=== PATIENT | male | born 1970 | race Caucasian/White ===

== ENCOUNTER 2017-07-06 11:39 | Inpatient (IN) ==
[2017-07-06] MEDS ORDERED: SALINE FLUSH 10ml SYRINGE IVF PRN ×2 (11:50→12:12)
[2017-07-06] MEDS ORDERED: NS 1,000 ML IV ONE (11:50)
--- NOTE | 2017-07-06 12:44 | Emergency Department Report ---
General Adult HPI - General Stated complaint: high blood sugar Time Seen by Provider: 07/06/17 12:30 Source: family (daughter is interpreting), parts interpreter Mode of arrival: ambulatory Limitations: language barrier - History of Present Illness HPI narrative: Pt presents after being sent form [facility]. Pt was seen in the clinic yesterday for excessive thirst and frequent urination. Labs were obtained and pt started on medication for gout. Pt was notified today that BG was extremely elevated and instructed to report to the ED. Family reports pt only complaint is thirst and frequent urination. Denies N/V, AMS, weakness, or dizziness. Onset (ago): day(s) Consistency: constant Relieving factors: none Associated symptoms: denies other symptoms - Related Data Home Medications Medication Instructions Recorded Confirmed Indomethacin [Indocin] 25 mg PO BID 07/06/17 07/06/17 Allergies Allergy/AdvReac Type Severity Reaction Status Date / Time No Known Allergies Allergy Verified 07/06/17 11:45 Review of Systems Limitations: ROS unobtainable due to patient's medical condition Constitutional: Reports: as per HPI Gastrointestinal: Reports: as per HPI Genitourinary: Reports: as per HPI Neurological: Reports: as per HPI Physical Exam - Limitations Limitations: language barrier - General General appearance: alert, in no apparent distress - Normal Exams: Head:: Normocephalic without trauma Eyes:: Pupils are PERRLA w/ EOMI Neck:: Full range of motion, without adenopathy Chest/Respirations:: Clear all barber, with good airflow, and symmetry bilaterally Cardiovascular:: Regular rate and rhythm, without murmur or gallop, Pulses 2+ all extremities, capillary refill, <2 seconds all extremities Abdomen:: Bowel sounds positive, soft, non-tender, non-distended Musculoskeletal:: No tenderness, or deformity noted, good range of motion, all extremities Integumentary:: No rashes Neurological:: Patient is alert, and oriented Psychiatric:: Patient exhibits, appropriate attention, emotion and affect Medical Decision Making - MDM Narrative Medical decision making narrative: Labs reviewed. Pt remains alert and verbal appropriate. NS infusing. Hospitalist notified for need for admission for hyperglycemia and new onset DM. Pt to be admitted observation at this time. - Differential Diagnosis Hyperglycemia, DM, UTI, BPH - Lab Data Lab results reviewed: Yes: I reviewed the patient's lab results. Result diagrams: 07/06/17 12:24 07/06/17 12:24 Lab Results 07/06/17 07/06/17 07/06/17 Range/Units 11:47 12:24 12:24 WBC 7.0 (4.5-11.0) T/MM3 RBC 4.51 (4.50-5.90) M/MM3 Hgb 13.8 (13.5-17.5) GM/DL Hct 39.5 L (41-53) % MCV 87.6 (80-100) UM3 MCH 30.6 (26-34) UUG MCHC 34.9 (31-37) GM/DL RDW Std Deviation 36.2 L (36.9-50.2) FL Plt Count 273 (130-400) T/MM3 MPV 11.3 (9.4-12.4) UM3 Immature Gran % (Auto) 0.1 (0.0-0.5) % Neut % (Auto) 73.2 H (33-66) % Lymph % (Auto) 20.1 L (23-45) % [place] % (Auto) 5.8 (0-9.0) % Eos % (Auto) 0.4 (0-4) % Baso % (Auto) 0.4 (0-2) % Neut # (Auto) 5.1 (1.8-7.7) T/MM3 Lymph # (Auto) 1.4 (1-4.8) T/MM3 [place] # (Auto) 0.4 (0-0.8) T/MM3 Eos # (Auto) 0.0 (0-0.5) T/MM3 Baso # (Auto) 0.0 (0-0.2) T/MM3 Abs Immat Gran (auto) 0.01 (0.00-0.03) T/MM3 Turbidity < 20 (0-20) Sodium 129 L (134-144) MEQ/L Potassium 5.2 H (3.6-5) MEQ/L Chloride 88 L (98-107) MEQ/L Carbon Dioxide 25 (22-30) MEQ/L Anion Gap 16 H (5-15) MEQ/L BUN 17.0 (9-20) MG/DL Creatinine 0.8 (0.8-1.5) MG/DL GFR Calculation 104 BUN/Creatinine Ratio 21 (6-26) RATIO Glucose 872 H* (75-110) MG/DL Glucometer > 500 (65-110) mg/dL Calculated Osmolality 294 H (261-280) MOSM/KG Calcium 9.2 (8.4-10.2) MG/DL Total Bilirubin 0.60 (0.20-1.30) MG/DL Icterus Index < 2 (0-7) AST 31 (17-59) U/L ALT 58 (21-72) U/L Alkaline Phosphatase 161 H (38-126) U/L Total Protein 8.0 (6.3-8.2) G/DL Albumin 4.4 (3.5-5.0) G/DL Globulin 3.6 (2.4-3.6) G/DL Albumin/Globulin Ratio 1.2 (1.1-2.2) RATIO Specimen Hemolysis < 15 (0-25) Ur Collection Type Urine Color (YELLOW) Urine Clarity Urine pH (5.0-8.0) Ur Specific [place] (1.015-1.025) Urine Protein (NEGATIVE) Urine Glucose (UA) (NEGATIVE) Urine Ketones (NEGATIVE) Urine Occult Blood (NEGATIVE) Urine Nitrate (NEGATIVE) Urine Bilirubin (NEGATIVE) Urine Urobilinogen (NORMAL) EU/DL Ur Leukocyte Esterase (NEGATIVE) Urinalysis Comment 07/06/17 Range/Units 12:28 WBC (4.5-11.0) T/MM3 RBC (4.50-5.90) M/MM3 Hgb (13.5-17.5) GM/DL Hct (41-53) % MCV (80-100) UM3 MCH (26-34) UUG MCHC (31-37) GM/DL RDW Std Deviation (36.9-50.2) FL Plt Count (130-400) T/MM3 MPV (9.4-12.4) UM3 Immature Gran % (Auto) (0.0-0.5) % Neut % (Auto) (33-66) % Lymph % (Auto) (23-45) % [place] % (Auto) (0-9.0) % Eos % (Auto) (0-4) % Baso % (Auto) (0-2) % Neut # (Auto) (1.8-7.7) T/MM3 Lymph # (Auto) (1-4.8) T/MM3 [place] # (Auto) (0-0.8) T/MM3 Eos # (Auto) (0-0.5) T/MM3 Baso # (Auto) (0-0.2) T/MM3 Abs Immat Gran (auto) (0.00-0.03) T/MM3 Turbidity (0-20) Sodium (134-144) MEQ/L Potassium (3.6-5) MEQ/L Chloride (98-107) MEQ/L Carbon Dioxide (22-30) MEQ/L Anion Gap (5-15) MEQ/L BUN (9-20) MG/DL Creatinine (0.8-1.5) MG/DL GFR Calculation BUN/Creatinine Ratio (6-26) RATIO Glucose (75-110) MG/DL Glucometer (65-110) mg/dL Calculated Osmolality (261-280) MOSM/KG Calcium (8.4-10.2) MG/DL Total Bilirubin (0.20-1.30) MG/DL Icterus Index (0-7) AST (17-59) U/L ALT (21-72) U/L Alkaline Phosphatase (38-126) U/L Total Protein (6.3-8.2) G/DL Albumin (3.5-5.0) G/DL Globulin (2.4-3.6) G/DL Albumin/Globulin Ratio (1.1-2.2) RATIO Specimen Hemolysis (0-25) Ur Collection Type Urine, clean catch Urine Color Yellow (YELLOW) Urine Clarity Clear Urine pH 7.0 (5.0-8.0) Ur Specific [place] <=1.005 L (1.015-1.025) Urine Protein Negative (NEGATIVE) Urine Glucose (UA) 3+ A (NEGATIVE) Urine Ketones 1+ A (NEGATIVE) Urine Occult Blood Negative (NEGATIVE) Urine Nitrate Negative (NEGATIVE) Urine Bilirubin Negative (NEGATIVE) Urine Urobilinogen 0.2 (NORMAL) EU/DL Ur Leukocyte Esterase Negative (NEGATIVE) Urinalysis Comment Microscopic not ind. Disposition Disposition: 02 To [facility] [place] Care Condition: Improved Prescriptions: No Action Indomethacin [Indocin] 25 mg PO BID Referrals: Shea Contreras APRN [Family Provider] - Time of Disposition: 13:39 - Seen By: midlevel
[2017-07-06] MEDS ORDERED: INSULIN REGULAR, HUMAN 100 UNIT/ML INJECTION IVP ONE (13:44)
[2017-07-06] MEDS ORDERED: INSULIN REGULAR, HUMAN 100 UNIT in NS 100 ML IV PRN (13:44)
[2017-07-06 14:43] VITALS: BMI 28.5
--- NOTE | 2017-07-06 15:42 | History & Physical Report ---
History of Present Illness Date: 07/06/17 Chief complaint: high blood sugar HPI: Patient is a 47 yo male who presents to the ED from his PCP's office for further w-u and tx of elevated BS. He had blood work drawn in the office yesterday and it was resulted today. His blood sugar was found to be >700 and his A1C was >14. He has had a 15 pound weight loss over the last month. He has had polyuria, polydipsia and blurry vision. He has no family history of diabetes. He has had some recent problems with gout in the right foot and ankle. He has had gout flares off and on. He drinks 3 times a month. Usually drinks 8-10 beers when he drinks. He was started on indomethacin yesterday in the office and has already had improvement with his gout symptoms. His uric acid in the office yesterday was 6.9. (Normal range 3.5-7.2) Patient's PCP is Shea Contreras at [facility]. I discussed patient's case with her. He has no significant past medical history other than his gout and some osteoarthritic complaints of his knees. His blood pressures over the few times he has been in have ranged 124-144/90-96. Patient is Kyrgyz-speaking only. His daughter is his multi operation forming machine setter. Review of Systems All systems PM: 10-point ROS was reviewed, no additional remarkable complaints except Review of systems: Polyuria, polydipsia, weight loss, blurry vision, weakness Past Medical History Medical History Diabetes Mellitus Type 2 - New dx today Gout Osteoarthritis-knees Surgical History: None Family History: Father-living. Asthma. Mother- when patient was very young of an embolism. Brother-gout Family History Updates: Updated - Social History Smoking status: Never smoker Substance use type: does not use Alcohol intake: current Alcohol intake frequency: a few times a month (drinks 8-10 beers approximately 3 times a month) Household members: spouse Current occupational status: employed ([employer] in [place]) Social history: Patient's PCP is [facility] Medications Home Medications Medication Instructions Recorded Confirmed Type Indomethacin [Indocin] 25 mg PO BID 07/06/17 07/06/17 History Allergies Allergy/AdvReac Type Severity Reaction Status Date / Time No Known Allergies Allergy Verified 07/06/17 11:45 Exam Vital Signs: Temperature 98.3 F 07/06/17 14:17 Pulse Rate 86 07/06/17 14:24 Respiratory Rate 24 07/06/17 14:17 Blood Pressure 137/84 07/06/17 14:30 Pulse Oximetry 96 07/06/17 14:24 Height/Weight/BMI: Height 1.68 m Weight 80.1 kg Body Mass Index 28.5 - Constitutional Present: no acute distress, well nourished, well developed, other (overweight) - Routine HEENT Exam Head: Present: normocephalic, atraumatic Eye: Present: EOMI ENT: Present: mucous membranes moist, dentition normal - Routine Neck Exam Present: supple. Absent: lymphadenopathy, thyromegaly - Routine Respiratory Exam Present: CTA bilaterally. Absent: wheezes - Routine Cardiovascular Exam Present: RRR. Absent: murmur - Routine Abdominal Exam Present: soft, normoactive bowel sounds, non distended. Absent: tenderness - Routine Extremities Exam Present: no edema, normal capillary refill Comments: Mild erythema to the right first and MTP joint. Mild erythema and slight tenderness to the left medial malleolus - Routine Skin Exam Present: dry, warm - Routine Neurological Exam Present: alert, oriented X3, CN II-XII intact - Routine Psychiatric Exam Present: normal affect, cooperative Results - Labs CBC & Chem 7: 07/06/17 12:24 07/06/17 16:35 Assessment and Plan (1) Diabetes mellitus Current visit: Yes Status: Acute Assessment and Plan: Assessment Diabetes [id number]. Likely type II Gout Overweight Hypertension - not previously treated Plan Admit to the CCU, Dr. Peterson attending, for correction of hyperglycemia and further monitoring. Patient given 10 units of insulin in the ER and then placed on an insulin drip. Will check serial BMP to monitor electrolytes. Patient is not acidotic. Start metformin in the am. Ideally pt should be treated with intensive insulin therapy for 2 wks and then converted to oral meds. Start metformin and titrate up as tolerated. Pt may eat when BS's are <300. Then start mealtime and long-acting insulin and titrate as needed. Consult for diabetic education. SCDs for VTE prophylaxis. Should start lisinopril 10mg qd for HTN and kidney protection, but will wait to start this until D/C given he is being started on metformin and is indocin as well. Pt wishes to be a full code. Case discussed with Dr. Peterson. Care to return to Shea Contreras on DC. DVT Prophylaxis: SCD's Resuscitation Status: Full Code - Physician Narrative Narrative: S: Pt comes in with new dx of DM from outpt clinic. Pt reports increase in frequency of urination and thirst. Reports he's lost ~15 lbs in the last month or so. Denies any n/v/d, f/c, cp or sob. Otherwise feels okay. O: Cards: RRR without murmurs Lungs: CTAB without wheezes A/P: New diagnosis of DM, labs/clinical picture not consistent with DKA/HHS so likely this is just hyperglycemia, pt started on insulin drip in ED so will cont. that until sugars <250 and then start insulin regimen. Monitor K closely while on insulin drip. Would recommend strict glucose control in the next two weeks with insulin at home and then possibly transition to PO meds as this may give pt the best chance to possibly recover from DM or at the most need PO meds only for his DM. Date: 07/06/17 Time: 1731 Hospital Course Summary Disclaimer: The visit summary below is not to be considered part of the above Progress Note. Hospital Course: Assessment Diabetes [id number]. Likely type II Gout Overweight Hypertension - not previously treated 07/06/17 - Hospital admission Admit to the CCU, Dr. Peterson attending, for correction of hyperglycemia and further monitoring. Patient given 10 units of insulin in the ER and then placed on an insulin drip. Will check serial BMP to monitor electrolytes. Patient is not acidotic. Start metformin in the am. Ideally pt should be treated with intensive insulin therapy for 2 wks and then converted to oral meds. Start metformin and titrate up as tolerated. Pt may eat when BS's are <300. Then start mealtime and long-acting insulin and titrate as needed. Consult for diabetic education. SCDs for VTE prophylaxis. Should start lisinopril 10mg qd for HTN and kidney protection, but will wait to start this until D/C given he is being started on metformin and is indocin as well.
[2017-07-06] MEDS: NS 1,000 ML IV SCH (16:16)
[2017-07-06] MEDS ORDERED: POTASSIUM CHLORIDE INJ 20 MEQ, POTASSIUM PHOSPHATE (mEq) 20 MEQ in NS 1,000 ML IV SCH (17:45)
[2017-07-06] MEDS: INDOMETHACIN 25 MG CAPSULE PO SCH (20:26)
[2017-07-06] MEDS: INSULIN ASPART 100unit/ml INJECTION SQ SCH (20:27)
[2017-07-06] MEDS: INSULIN DETEMIR 100unit/ml INJECTION SQ SCH (20:27)
[2017-07-06] MEDS ORDERED: INSULIN DETEMIR 100unit/ml INJECTION SQ SCH (21:00)
[2017-07-06] MEDS: POTASSIUM CHLORIDE PREMIX 10 MEQ/100 ML BAG IV SCH (21:09)
[2017-07-06] MEDS: INSULIN ASPART 100unit/ml INJECTION SQ PRN (22:33)
[2017-07-07] MEDS ORDERED: INSULIN ASPART 100unit/ml INJECTION SQ ONE (01:50)
[2017-07-07] MEDS: NS 1,000 ML IV SCH ×3 (03:44→15:49)
[2017-07-07] MEDS: INSULIN ASPART 100unit/ml INJECTION SQ SCH ×3 (08:18→16:31)
[2017-07-07] MEDS: INSULIN ASPART 100unit/ml INJECTION SQ PRN ×5 (08:19→21:54)
[2017-07-07] MEDS: INDOMETHACIN 25 MG CAPSULE PO SCH ×2 (08:19→16:32)
[2017-07-07] MEDS: METFORMIN 500 MG TABLET PO SCH (08:54)
[2017-07-07] MEDS ORDERED: LISINOPRIL 10 MG TABLET PO SCH (09:00)
[2017-07-07] MEDS ORDERED: INSULIN ASPART 100unit/ml INJECTION SQ SCH (10:30)
--- NOTE | 2017-07-07 15:27 | Progress Note ---
- Date 07/07/17 Subjective: Mr. Rose was seen with family members at the bedside to translate for him. He reports that he is doing fine today. He has less urinary frequency today than recent days and indicates that his vision is less blurry today than prior to admission. He denies dyspnea, nausea, or pain. He's had no dysuria. Family reported that they met with the computing machine operator but have not yet met with the dietitian (although nursing reported the dietitian had been in earlier this morning). Patient's appetite is good. Objective Vital signs: Temperature 96.1 F L 07/07/17 13:30 Pulse Rate 70 07/07/17 13:30 Respiratory Rate 24 07/07/17 13:30 Blood Pressure 135/87 07/07/17 13:30 Pulse Oximetry 98 - RA 07/07/17 13:30 I/O 2561/1300 EXAM General-NAD, alert HEENT-conjunctiva clear, sclera anicteric, oropharynx clear-no thrush Lungs-respirations nonlabored, good airflow, breath sounds clear Cardiac-regular rhythm, S1-S2 Abd-soft, nontender, diminished bowel sounds Ext-without edema Neuro-MAEW Psych-calm, cooperative - Rhythm: Normal Sinus Rhythm Results - Labs CBC & Chem 7: 07/07/17 03:38 07/07/17 03:38 Labs: A1C 14.4, uric acid 7.4 Accu-Cheks 165-5 AM, 229-8 AM, 492-10 AM, 299-noon Assessment and Plan (1) Diabetes mellitus Problem details: New diagnosis, type 2 Current visit: Yes Status: Acute Assessment and Plan: Assessment Diabetes [id number]. Type II Gout Overweight Hypertension - not previously treated Plan Scheduled insulin with Levemir/NovoLog initiated yesterday; fasting glucose around 200 today but will likely need more short acting insulin based on initial postprandial reading. Continue current regimen for 24 hours and reassess. Low-dose metformin also initiated yesterday with goal of converting to metformin after initial stabilization on insulin for several weeks. Continue education-computing machine operator to meet with patient/family again this afternoon and dietitian has provided initial dietary education. Blood pressure improved on lisinopril. No foot/ankle pain described today-continue indomethacin short-term. Stable to transfer out of ICU today. Discussed with nursing/family. Questions answered. - Physician Narrative Narrative: Date: 07/07/17 Time: 1522 Hospital Course Summary Disclaimer: The visit summary below is not to be considered part of the above Progress Note. Hospital Course: Assessment Diabetes [id number]. Likely type II Gout Overweight Hypertension - not previously treated 07/06/17 - Hospital admission Admit to the CCU, Dr. Peterson attending, for correction of hyperglycemia and further monitoring. Patient given 10 units of insulin in the ER and then placed on an insulin drip. Will check serial BMP to monitor electrolytes. Patient is not acidotic. Start metformin in the am. Ideally pt should be treated with intensive insulin therapy for 2 wks and then converted to oral meds. Start metformin and titrate up as tolerated. Pt may eat when BS's are <300. Then start mealtime and long-acting insulin and titrate as needed. Consult for diabetic education. SCDs for VTE prophylaxis. Should start lisinopril 10mg qd for HTN and kidney protection, but will wait to start this until D/C given he is being started on metformin and is indocin as well. 07/07/17 15:33 A1C 14.4, fasting blood sugar today approximate 200 after Levemir and scheduled NovoLog initiated in conjunction with low-dose metformin. Ongoing diabetes/dietary education. Right foot/ankle pain improved; blood pressure improved with lisinopril. Transfer out of ICU.
[2017-07-07] MEDS ORDERED: ACETAMINOPHEN 325 MG TABLET PO PRN ×2 (17:29→17:34)
[2017-07-07] MEDS: INSULIN DETEMIR 100unit/ml INJECTION SQ SCH (21:56)
[2017-07-07] MEDS: HYDROCODONE/APAP 7.5 MG/325 MG TABLET PO PRN (22:45)
[2017-07-08 01:21] VITALS: RESP 16
[2017-07-08] MEDS: NS 1,000 ML IV SCH (04:24)
[2017-07-08] MEDS: INSULIN ASPART 100unit/ml INJECTION SQ PRN ×3 (07:31→14:24)
[2017-07-08] MEDS: METFORMIN 500 MG TABLET PO SCH (09:49)
[2017-07-08] MEDS: INDOMETHACIN 25 MG CAPSULE PO SCH ×2 (09:49→17:50)
[2017-07-08] MEDS: HYDROCODONE/APAP 7.5 MG/325 MG TABLET PO PRN (09:50)
[2017-07-08] MEDS: INSULIN ASPART 100unit/ml INJECTION SQ SCH ×3 (09:51→17:50)
[2017-07-08] MEDS ORDERED: INSULIN ASPART 100unit/ml INJECTION SQ ONE (10:00)
[2017-07-08] MEDS ORDERED: INSULIN DETEMIR 100unit/ml INJECTION SQ SCH ×2 (10:01→13:10)
[2017-07-08 15:02] VITALS: BP 146/99; PULSE 78; TEMP 97.8; O2SAT 97
[2017-07-08] MEDS ORDERED: LISINOPRIL 10 MG TABLET PO SCH (17:45)
--- NOTE | 2017-07-08 18:19 | Discharge Summary ---
Discharge Information Date of admission: 07/07/17 12:07 Anticipated date of discharge: 07/08/17 Attending Physician: Emma Atkins MD Primary care physician: Shea Contreras APRN - Discharge Diagnosis (1) Diabetes mellitus Status: Acute Diabetes [id number]. Type II Gout Overweight Hypertension - not previously treated - Laboratory Labs: On admission: CBC unremarkable, initial blood sugar 872, sodium 129, potassium 5.2, bicarbonate 25, and osmolality 294. A1C 14.4 on 07/06/17 07/08/17 04:03 History of Present Illness HPI: Patient is a 47 yo male who presents to the ED from his PCP's office for further w-u and tx of elevated BS. He had blood work drawn in the office yesterday and it was resulted today. His blood sugar was found to be >700 and his A1C was >14. He has had a 15 pound weight loss over the last month. He has had polyuria, polydipsia and blurry vision. He has no family history of diabetes. He has had some recent problems with gout in the right foot and ankle. He has had gout flares off and on. He drinks 3 times a month. Usually drinks 8-10 beers when he drinks. He was started on indomethacin yesterday in the office and has already had improvement with his gout symptoms. His uric acid in the office yesterday was 6.9. (Normal range 3.5-7.2) Patient's PCP is Shea Contreras at [facility] [place]. I discussed patient's case with her. He has no significant past medical history other than his gout and some osteoarthritic complaints of his knees. His blood pressures over the few times he has been in have ranged 124-144/90-96. Patient is Slovenian-speaking only. His daughter is his egg producer. Hospital Course This is a general summary of the patient's hospital course. For more details refer to the complete medical record. Hospital course: Assessment Diabetes [id number]. Likely type II Gout Overweight Hypertension - not previously treated 07/06/17 - Hospital admission Admit to the CCU, Dr. Peterson attending, for correction of hyperglycemia and further monitoring. Patient given 10 units of insulin in the ER and then placed on an insulin drip. Will check serial BMP to monitor electrolytes. Patient is not acidotic. Start metformin in the am. Ideally pt should be treated with intensive insulin therapy for 2 wks and then converted to oral meds. Start metformin and titrate up as tolerated. Pt may eat when BS's are <300. Then start mealtime and long-acting insulin and titrate as needed. Consult for diabetic education. SCDs for VTE prophylaxis. Should start lisinopril 10mg qd for HTN and kidney protection, but will wait to start this until D/C given he is being started on metformin and is indocin as well. Mr. Rose was on an insulin drip very briefly after which he was converted to scheduled NovoLog/Levemir. Doses were increased progressively over the next 2 days to 10 units NovoLog 3 times a day and 30 units of Levemir at bedtime ( converted to Lantus at discharge as sample vial of Lantus was provided to the patient by diabetes education). It was hoped that with intensive insulin therapy for several weeks blood sugars could be adequately controlled to convert to an oral regimen after initial stabilization. Metformin was initiated at 500 mg daily on 07/07 and adequately tolerated during the hospitalization. The patient and family members were seen by the dietitian and the clinical systems educator on several occasions. He was instructed in use of both insulin pens and drawing up insulin and self administering insulin shots. He indicated strong preference for use of insulin pens and was subsequently discharged with NovoLog flex pens for his short acting insulin but will use Lantus which he will draw up from a 10 mL vial provided by diabetes education initially. At follow-up. He can be determined if this should be converted to either Lantus or Levemir pen form for longer-term use if it appears likely he will remain on insulin. Lisinopril was initiated on the date of discharge-there was persistent mild hypertension with diastolics in the mid and upper 90s throughout much of the hospitalization. Gout symptoms were significantly improved; indomethacin will be continued short- term and need for continued treatment reassessed at follow-up in the office. On 07/08 the patient reported decreased urinary frequency. He denied lightheadedness or dyspnea and indicated that his appetite is very good. He denied pain in his foot and reported that his right elbow was improved although he had not previously complained of elbow pain. Family members translated for him again. Respirations are nonlabored with good airflow and clear breath sounds , cardiac rhythm is regular, abdomen benign. There is no evidence of inflammation or erythema on either foot. Fasting blood sugar today was 248 with 2 hour postprandials of 309 and 257. Modifications and insulin were made as described above to address ongoing hyperglycemia. Patient demonstrated ability to draw up Lantus and self injected prior to discharge. Patient is asked to follow up at [facility] next week for reassessment and to review blood sugars to determine if further modifications in his insulin regimen is necessary. Time spent with patient: discharge greater than 30 minutes Discharge Plan - Med Rec/Dispo Referrals/Follow Up: Shea Contreras APRN [Family Provider] - (as soon as possible-Jul 11- preferably) Dariel Instructions: Type 2 Diabetes in Adults (ED) Prescriptions: New Insulin Aspart [Novolog Flexpen] 10 unit SQ TIDWM #5 insuln.pen Insulin Glargine [Lantus] 30 unit SQ HS #1 vial RX: Lisinopril [Prinivil] 10 mg PO DAILY #30 tab RX: Indomethacin [Indocin] 25 mg PO BIDWM cap RX: Acetaminophen [Tylenol] 325 - 650 mg PO QID PRN tab PRN Reason: Discomfort RX: Metformin [Glucophage] 500 mg PO WB #30 tab Discontinued Indomethacin [Indocin] 25 mg PO BID
== END 2017-07-08 19:38 | disposition home or self-care (01) | DRG 639 ==
LOC: MED 11:39 → ED 11:39 → SUATTDRO 13:35 → CCU 14:26 → MED 07-07 12:48
PROVIDERS: ADMIT Internal Medicine; ATTEND Internal Medicine